=== PATIENT | female | born 2000 | race Caucasian/White ===

== ENCOUNTER 2019-09-13 16:09 | Emergency (ER) | payer SELFPAY ==
[~2019-09-13] VITALS: Ht 162.6 cm; Wt 52.2 kg
[2019-09-13 16:15] VITALS: BP 122/73
--- NOTE | 2019-09-13 16:15 | NUR ---
Pt brought in thru ambulance entrance and placed in bed 2 for COVID precautions.
--- NOTE | 2019-09-13 16:18 | NUR ---
Patient ambulated to bed 2. RN evaluating patient at bedside.
--- NOTE | 2019-09-13 16:25 | NUR ---
COVID PRECAUTIONS PER HOSPITAL POLICY PT ENTERED WITH MASK WITH ER PT PLACED IN COVID ISOLATION ROOM COVID SIGN /SIGN IN SHEET AT BEDSIDE RN FULL PPE
--- NOTE | 2019-09-13 16:25 | NUR ---
18 Y/O F C/C FEVER/SORE THROAT/MYALGIA X 1 DAY. PT REFERRED FROM CLINIC TODAY TO ER FOR FURTHER EVALUATION. PER PT CLINIC DID NOT TREAT ANY SYMPTOMS SHE COULD BE A POTENTIAL CASE FOR COVID. PT HAS NOT BEEN IN CONTACT WITH ANYONE POSITIVE COVID. NO RESPIRATORY DISTRESS NOTED. PT EUPNIC. PAIN 6/10 TIGHTNESS, BODY ACHES. NKA. NO HX. NO RX. NO NVD. SIDE RAIL X1.
--- NOTE | 2019-09-13 17:32 | NUR ---
COVID SWAB DONE WALKED TO LAB
--- NOTE | 2019-09-13 17:47 | NUR ---
PT RESTING IN BED, SIDE RAIL X1
[2019-09-13 17:55] VITALS: BP 132/70
== END 2019-09-13 17:55 | disposition home or self-care (01) ==
LOC: EEVIPCON 16:09 → MED 16:09
DX: J02.9 Acute pharyngitis, unspecified (principal); Z20.828 Contact with and (suspected) exposure to other viral communicable diseases; R50.9 Fever, unspecified
CPT/HCPCS: 99283; C9803; U0003; 36415

== ENCOUNTER 2020-11-18 20:25 | Emergency (ER) | payer MEDICAID ==
[~2020-11-18] VITALS: Ht 165.1 cm; Wt 65.8 kg
[2020-11-18 20:49] VITALS: BP 120/69
[2020-11-19] MEDS ORDERED: NAPR-54 PO (02:35)
== END 2020-11-19 02:44 | disposition home or self-care (01) ==
LOC: MED 20:25
DX: S13.4XXA Sprain of ligaments of cervical spine, initial encounter (principal); S50.11XA Contusion of right forearm, initial encounter; V43.52XA Car driver injured in collision with other type car in traffic accident, initial encounter; Y93.89 Activity, other specified; Y92.89 Other specified places as the place of occurrence of the external cause; Y99.8 Other external cause status
CPT/HCPCS: 72050; 73090; 99284

== ENCOUNTER 2021-06-18 22:58 | Emergency (ER) | payer MEDICAID ==
[~2021-06-18] VITALS: Ht 165.1 cm; Wt 58.2 kg
[~2021-06-18 22:58] MED LIST: NAPR-54 PO
[2021-06-18 23:39] VITALS: BP 123/85
--- NOTE | 2021-06-19 00:17 | NUR ---
PT TAKEN TO BED 2
--- NOTE | 2021-06-19 00:22 | NUR ---
PT C/O "LUMP" IN HER THROAT X 3 DAYS. PT STATES IT IS PAINFUL TO SWALLOW.
--- NOTE | 2021-06-19 02:18 | NUR ---
XRAY AT BEDSIDE
[2021-06-19] MEDS ORDERED: KETOROLAC 30 MG/ML VIAL IM ONE (03:45)
--- NOTE | 2021-06-19 04:00 | NUR ---
PAIN MEDICATION GIVEN PER ORDER.
[2021-06-19] MEDS ORDERED: NAPR-54 PO (04:20)
[2021-06-19 04:30] VITALS: BP 117/76
--- NOTE | 2021-06-19 04:30 | NUR ---
Patient discharged with v/s stable. Written and verbal after care instructions given and explained. Patient verbalized understanding. Ambulatory with steady gait. All questions addressed prior to discharge. Advised to follow up with PMD.
== END 2021-06-19 04:30 | disposition home or self-care (01) ==
LOC: MED 22:58
DX: R07.89 Other chest pain (principal); R59.0 Localized enlarged lymph nodes; Z79.1 Long term (current) use of non-steroidal anti-inflammatories (NSAID)
CPT/HCPCS: 71045; 96372; 99283; J1885; Q0092

== ENCOUNTER 2023-09-26 17:53 | Emergency (ER) | payer MEDICAID, OTHER ==
[~2023-09-26] VITALS: Ht 165.1 cm; Wt 58.1 kg
[~2023-09-26 17:53] MED LIST changes: +NAPR-337 PO; -NAPR-54 PO
[2023-09-26 18:28] VITALS: BP 116/78; PULSE 90; RESP 18; TEMP 98.8; O2SAT 100
[2023-09-26 19:10] LABS: BASOPHILS # (AUTO) 0.1 K/uL (0.00-0.22); BASOPHILS % (AUTO) 0.6 % (0.0-2.0); EOSINOPHILS # (AUTO) 0.2 K/uL (0-0.4); EOSINOPHILS % (AUTO) 2.5 % (0.0-4.0); HEMATOCRIT 38.8 % (36-48); HEMOGLOBIN 13.6 g/dL (12.0-16.0); LYMPHOCYTES # (AUTO) 2.8 K/uL (2.5-16.5); LYMPHOCYTES % (AUTO) 31.1 % (20.5-51.1); MEAN CORPUSCULAR HEMOGLOBIN 32 pg (27-31); MEAN CORPUSCULAR HGB CONC 35 g/dL (33-37); MEAN CORPUSCULAR VOLUME 90.4 fL (80-94); MONOCYTES # (AUTO) 1.1 K/uL (0.8-1.0); MONOCYTES % (AUTO) 12.5 % (1.7-9.3); NEUTROPHILS # (AUTO) 4.8 K/uL (1.8-7.7); NEUTROPHILS % (AUTO) 53.3 % (42.2-75.2); PLATELET COUNT (AUTO) 321 K/uL (140-450); RED BLOOD CELL COUNT(AUTO) 4.29 MIL/uL (4.20-5.40); RED CELL DISTRIBUTION WIDTH 12.6 % (11.6-13.7)
[2023-09-26 19:21] LABS: ANION GAP 12.2 (8-16); CALCIUM 9.7 mg/dL (8.5-10.1); CARBON DIOXIDE 28.6 mmol/L (21-32); CREATININE 0.8 mg/dL (0.6-1.3); POTASSIUM 3.8 mmol/L (3.5-5.1)
[2023-09-26 19:23] LABS: APPEARANCE,URINE CLEAR (CLEAR); BILIRUBIN,URINE NEGATIVE (NEGATIVE); BLOOD, URINE NEGATIVE (NEGATIVE); COLOR,URINE YELLOW (YELLOW); LEUKOCYTE ESTERASE ,URINE NEGATIVE (NEGATIVE); NITRITE, URINE NEGATIVE (NEGATIVE); PH,URINE 6.5 (5.0-9.0); PROTEIN,URINE NEGATIVE (NEGATIVE); UGLUCOSE NEGATIVE (NEGATIVE); UROBILINOGEN,URINE 0.2 EU/dL (0.2 - 1)
[2023-09-26 19:25] LABS: ALBUMIN 3.6 g/dL (3.4-5.0); BILIRUBIN,DIRECT 0.1 mg/dL (0.0-0.3); TOTAL BILIRUBIN 0.3 mg/dL (0.0-1.0); TOTAL PROTEIN, SERUM 7.9 g/dL (6.4-8.2)
[2023-09-26 19:56] VITALS: O2SAT 99
[2023-09-26] MEDS ORDERED: PRED20TA5 PO (20:31)
[2023-09-26] MEDS ORDERED: IBUP-2213 PO (20:31)
== END 2023-09-26 20:37 | disposition home or self-care (01) ==
LOC: MED 17:53
DX: R10.32 Left lower quadrant pain (principal); R05.9 Cough, unspecified; Z79.899 Other long term (current) drug therapy
CPT/HCPCS: 36415; 80048; 80076; 81003; 81025; 83690; 84703; 85025; 99284

== ENCOUNTER 2023-11-03 22:45 | Emergency (ER) | payer OTHER ==
[~2023-11-03] VITALS: Ht 165.1 cm; Wt 59.0 kg
[~2023-11-03 22:45] MED LIST changes: +IBUP-2213 PO; +PRED20TA5 PO
[2023-11-03 23:12] VITALS: BP 111/72; PULSE 82; RESP 16; TEMP 97.7; O2SAT 99
[2023-11-03 23:46] LABS: APPEARANCE,URINE CLEAR (CLEAR); BILIRUBIN,URINE NEGATIVE (NEGATIVE); BLOOD, URINE NEGATIVE (NEGATIVE); COLOR,URINE YELLOW (YELLOW); LEUKOCYTE ESTERASE ,URINE NEGATIVE (NEGATIVE); NITRITE, URINE NEGATIVE (NEGATIVE); PH,URINE 6.5 (5.0-9.0); PROTEIN,URINE NEGATIVE (NEGATIVE); UGLUCOSE NEGATIVE (NEGATIVE); UROBILINOGEN,URINE 0.2 EU/dL (0.2 - 1)
[2023-11-03] MEDS ORDERED: NITR100C7 PO (23:54)
[2023-11-03] MEDS ORDERED: PYR100 PO (23:54)
[2023-11-04 00:07] VITALS: BP 111/72; PULSE 82; RESP 16; TEMP 97.7; O2SAT 99
== END 2023-11-04 00:07 | disposition home or self-care (01) ==
LOC: MED 22:45
DX: N30.90 Cystitis, unspecified without hematuria (principal); Z79.1 Long term (current) use of non-steroidal anti-inflammatories (NSAID); Z79.899 Other long term (current) drug therapy
CPT/HCPCS: 81003; 81025; 99283